=== PATIENT | female | born 1970 | race Caucasian/White ===

== ENCOUNTER 2016-06-09 07:56 | Emergency (ER) | payer OTHER ==
[~2016-06-09] VITALS: Ht 157.5 cm; Wt 80.1 kg
[2016-06-09] MEDS ORDERED: NAPROXEN500 MG PO (08:22)
[2016-06-09] MEDS ORDERED: FLEXERIL10 MG PO (08:22)
[2016-06-09] MEDS ORDERED: LIDODERM 5% P1 PATCH TD (08:22)
[2016-06-09] MEDS ORDERED: PREDNISONE20 MG PO (08:22)
[2016-06-09 08:57] VITALS: BP 150/94
== END 2016-06-09 08:58 | disposition home or self-care (01) ==
LOC: EXP 07:56 → EME 07:56 → EXP 08:58
DX: M54.31 Sciatica, right side (principal)
CPT/HCPCS: 99281; 99283; J1885; J7512